=== PATIENT | male | born 1960 | race Caucasian/White ===

== ENCOUNTER → 2018-06-26 | Outpatient (CLI) | payer OTHER ==
[~2018-06-26] MED LIST: ADULT LOW DOSE81 MG PO; HYZAAR 100-251 EACH PO; MECLIZINE HCL25 M1 PO; MIRALAX255 GM PO; MS CONTIN 100100 MG PO; OMEPRAZOLE40 MG PO; PREDNISONE 20 M20 MG PO; PROVENTIL HFA6.7 G1 INH; SIMVASTATIN40 MG PO
== END ==
LOC: CAT 10:03 → EDSTATUS 10:32 → CAT 10:56
DX: N28.1 Cyst of kidney, acquired (principal); R91.8 Other nonspecific abnormal finding of lung field

== ENCOUNTER → 2018-12-19 | Outpatient (CLI) | payer OTHER | LOC: CAT | DX: J44.9 Chronic obstructive pulmonary disease, unspecified (principal); I25.10 Atherosclerotic heart disease of native coronary artery without angina pectoris; J90 Pleural effusion, not elsewhere classified; M31.30 Wegener's granulomatosis without renal involvement; F17.200 Nicotine dependence, unspecified, uncomplicated ==

== ENCOUNTER → 2019-01-26 | Outpatient (CLI) | payer OTHER | LOC: CAT 11:22 | DX: N28.1 Cyst of kidney, acquired (principal) ==